=== PATIENT | female | born 2000 | race Caucasian/White ===

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

== ENCOUNTER → 2022-01-24 | Outpatient (CLI) | payer OTHER | END | disposition home or self-care (01) | LOC: LABWHC1 07:55 | PROVIDERS: ATTEND Internal Medicine Endocrinology, Diabetes & Metabolism | DX: E03.8 Other specified hypothyroidism (principal) | CPT/HCPCS: 36415; 84443 ==

== ENCOUNTER → 2022-05-26 | Outpatient (CLI) | payer OTHER | END | disposition home or self-care (01) | LOC: LABWHC1 09:20 | PROVIDERS: ATTEND Internal Medicine Endocrinology, Diabetes & Metabolism | DX: E03.8 Other specified hypothyroidism (principal) | CPT/HCPCS: 36415; 84443 ==

== ENCOUNTER → 2022-12-10 | Outpatient (CLI) | payer OTHER ==
[2022-12-11 03:51] LABS: HIV 2 AB Non-Reactive (Non-Reactive); HIV AB P24 Non-Reactive (Non-Reactive); HIV P24 AG Non-Reactive (Non-Reactive)
== END | disposition home or self-care (01) ==
LOC: LABWHC1 16:02
PROVIDERS: ATTEND Obstetrics & Gynecology
DX: Z34.01 Encounter for supervision of normal first pregnancy, first trimester (principal); Z3A.00 Weeks of gestation of pregnancy not specified; E03.8 Other specified hypothyroidism
CPT/HCPCS: 36415; 84443; 87390

== ENCOUNTER 2022-12-31 16:46 | Emergency (ER) | payer OTHER ==
[2022-12-31 17:38] VITALS: BP 93/60; PULSE 77; RESP 16; TEMP 98
--- NOTE | 2022-12-31 18:59 | ED ---
General Adult HPI - General Source: patient, RN notes reviewed Mode of arrival: ambulatory Limitations: no limitations <Luanne Aguilar - Last Filed: 12/31/22 18:59> <Fredy Baker - Last Filed: 12/31/22 21:47> - General Chief complaint: Abdominal Pain Stated complaint: abd pain-19 weeks preg Time Seen by Provider: 12/31/22 18:58 - History of Present Illness Initial comments: 22 year old female who is presents to the emergency department with a chief complaint of vaginal cramping. Patient reports worsening cramping for months worsening today. Denies vaginal bleeding. (Luanne Aguilar) - Related Data Allergies Allergy/AdvReac Type Severity Reaction Status Date / Time No Known Allergies Allergy Verified 12/31/22 17:38 Review of Systems ROS Other: All systems not noted in ROS Statement are negative. <Luanne Aguilar - Last Filed: 12/31/22 18:59> ROS Other: All systems not noted in ROS Statement are negative. <Fredy Baker - Last Filed: 12/31/22 21:47> ROS Statement: Those systems with pertinent positive or pertinent negative responses have been documented in the HPI. Past Medical History Past Medical History: No Reported History History of Any Multi-Drug Resistant Organisms: None Reported Past Surgical History: No Surgical Hx Reported Past Psychological History: No Psychological Hx Reported Smoking Status: Never smoker Past Alcohol Use History: None Reported Past Drug Use History: None Reported <Luanne Aguilar - Last Filed: 12/31/22 18:59> General Exam Limitations: no limitations <Luanne Aguilar - Last Filed: 12/31/22 18:59> - General Exam Comments Initial Comments: Visual Physical Exam Vital signs reviewed General: Well-appearing, nontoxic, no acute distress. Head: Normocephalic, atraumatic Eyes: PERRLA, EOMI ENT: Airway patent Chest: Nonlabored breathing Skin: No visual rash, normal skin tone Neuro: Alert and oriented 3 Musculoskeletal: No gross abnormalities I performed the quick note portion of this exam, verbal signature Luanne Aguilar PA-C (Luanne Aguilar) Course Vital Signs 12/31/22 17:35 Temperature 98 F Pulse Rate 77 Respiratory 16 Rate Blood Pressure 93/60 O2 Sat by Pulse 98 Oximetry Medical Decision Making - Lab Data Lab Results 12/31/22 Range/Units 20:13 Urine Color Yellow Urine Appearance Cloudy H (Clear) Urine pH 7.0 (5.0-8.0) Ur Specific [place] 1.023 (1.001-1.035) Urine Protein Trace H (Negative) Urine Glucose (UA) Negative (Negative) Urine Ketones Negative (Negative) Urine Blood Negative (Negative) Urine Nitrite Negative (Negative) Urine Bilirubin Negative (Negative) Urine Urobilinogen 4.0 (<2.0) mg/dL Ur Leukocyte Esterase Large H (Negative) Urine RBC <1 (0-5) /hpf Urine WBC 17 H (0-5) /hpf Ur Squamous Epith Cells 6 H (0-4) /hpf Amorphous Sediment Rare H (None) /hpf Urine Bacteria Occasional H (None) /hpf Urine Mucus Rare H (None) /hpf Disposition <Luanne Aguilar - Last Filed: 12/31/22 18:59> Is patient prescribed a controlled substance at d/c from ED?: No Time of Disposition: 21:50 <Fredy Baker - Last Filed: 12/31/22 21:47> Clinical Impression: Abdominal pain, UTI (urinary tract infection) Disposition: HOME SELF-CARE Condition: Good Instructions (If sedation given, give patient instructions): Abdominal Pain in (ED), Urinary Tract Infection in (ED) Prescriptions: Cephalexin [Keflex] 500 mg PO Q6HR #20 cap Referrals: None,Stated [Primary Care Provider] - 1-2 days
--- NOTE | 2022-12-31 20:10 | US ---
EXAMINATION TYPE: US OB >= 14 wk fetus DATE OF EXAM: 12/31/2022 COMPARISON: None CLINICAL cramping INDICATION: Female, 22 years old with history of pelvic cramping; TECHNIQUE: Transabdominal (TA) GESTATIONAL AGE / DATING Physician Established: (19 weeks/2 days) EDC: 05/25/23 Dates by First Scan: No previous this is first scan Dates by Current Scan: (19 weeks/1 days) EDC: 05/26/23 Beta HCG (if available): Not available at this time SURVEY IUP: Single PLACENTA: Posterior PREVIA: No Previa JIM: 13.4 cm Normal CERVICAL LENGTH (transabdominal: norm > 3.0cm): 3.9 cm BIOMETRY PRESENTATION: Breech LIE: Longitudinal BPD: 4.41 cm 19 weeks / 2 days HC: 15.9 cm 18 weeks / 5 days AC: 14.1 cm 19 weeks / 3 days FL: 3.1 cm 19 weeks / 3 days ESTIMATED WEIGHT IN GRAMS: 290.05 grams ESTIMATED WEIGHT IN LBS/OZ: 0 lbs. 10 oz. WEIGHT PERCENTAGE BASED ON ESTABLISHED DATES: 51.8% HC/AC: 1.13 Normal FL/AC: 21.7 Normal HEART RATE: 136 bpm RHYTHM: Normal IMPRESSION: Single live intrauterine gestation ultrasound age 19 weeks 1 day.
[2022-12-31 20:45] LABS: Amorphous Sediment,Urine Rare /hpf; Appearance,Urine Cloudy (Clear); Bacteria,Urine Occasional /hpf; Bilirubin,Urine Negative (Negative); Blood,Urine Negative (Negative); Color,Urine Yellow; Glucose,Urine (UA) Negative (Negative); Ketones,Urine Negative (Negative); Leukocyte Esterase,Urine Large (Negative); Mucus,Urine Rare /hpf; Nitrite,Urine Negative (Negative); Protein,Urine Trace (Negative); RBC,Urine <1 /hpf (0-5); Specific Gravity,Urine 1.023 (1.001-1.035); Squamous Epithelial Cell,Urine 6 /hpf (0-4); WBC,Urine 17 /hpf (0-5)
[2022-12-31] MEDS ORDERED: ACETAMINOPHEN TAB 500 MG TAB PO STA (21:41)
[2022-12-31] MEDS ORDERED: CEPHALEXIN 500 MG CAP PO STA (21:41)
== END 2022-12-31 21:55 | disposition home or self-care (01) ==
LOC: EC 16:46
DX: O23.42 Unspecified infection of urinary tract in pregnancy, second trimester (principal); N39.0 Urinary tract infection, site not specified; Z3A.19 19 weeks gestation of pregnancy
CPT/HCPCS: 76805; 81001; 87086; 99284

== ENCOUNTER → 2023-01-31 | Outpatient (CLI) | payer OTHER | END | disposition home or self-care (01) | LOC: LABWHC1 08:09 | PROVIDERS: ATTEND Internal Medicine Endocrinology, Diabetes & Metabolism | DX: E03.8 Other specified hypothyroidism (principal) | CPT/HCPCS: 36415; 84443 ==

== ENCOUNTER → 2023-03-16 | Outpatient (CLI) | payer OTHER | END | disposition home or self-care (01) | LOC: LABWHC1 10:32 | PROVIDERS: ATTEND Internal Medicine Endocrinology, Diabetes & Metabolism | DX: E03.8 Other specified hypothyroidism (principal) | CPT/HCPCS: 36415; 84443 ==

== ENCOUNTER → 2023-04-20 | Outpatient (CLI) | payer OTHER | END | disposition home or self-care (01) | LOC: LABWHC1 09:45 | PROVIDERS: ATTEND Internal Medicine Endocrinology, Diabetes & Metabolism | DX: E03.8 Other specified hypothyroidism (principal) | CPT/HCPCS: 36415; 84443 ==

== ENCOUNTER 2023-04-23 12:05 | Outpatient (CLI) | payer OTHER ==
[2023-04-23 13:33] LABS: Appearance,Urine Slightly Cloudy (Clear); Bilirubin,Urine 1+ (Negative); Color,Urine Yellow; Glucose,Urine (UA) Negative (Negative); Ketones,Urine Negative (Negative); Protein,Urine Negative (Negative)
[2023-04-23 13:34] LABS: Blood,Urine Negative (Negative); Leukocyte Esterase,Urine Moderate (Negative); Nitrite,Urine Negative (Negative); Urobilinogen,Urine 0.2 mg/dL (<2.0)
[2023-04-23 13:37] LABS: Bacteria,Urine Rare /hpf; Mucus,Urine Rare /hpf; RBC,Urine <1 /hpf (0-5); Squamous Epithelial Cell,Urine 2 /hpf (0-4); WBC,Urine 7 /hpf (0-5)
[2023-04-23 14:02] VITALS: BP 119/63; PULSE 76; RESP 16; TEMP 98.1
--- NOTE | 2023-05-15 17:34 | P.MSEPDOC ---
Presenting Problems - Arrival Data Date of Arrival on Unit: 04/23/23 Time of Arrival on Unit: 12:05 Mode of Transport: Ambulatory - Complaint OB-Reason for Admission/Chief Complaint: Possible Onset of Labor, Pain Comment: Contractions since 0800, non painful Medical History - Information : 1 Para: 0 - Gestational Age Gestational Age by TORI (wks/days): 35 Weeks and 3 Days Review of Systems - Review of Systems Constitutional: No problems Breast: No problems ENT: No problems Cardiovascular: No problems Respiratory: No problems Gastrointestinal: No problems Genitourinary: Dysuria Musculoskeletal: No problems Neurological: No problems Skin: No problems Vital Signs - Temperature Temperature: 98.1 F Temperature Source: Temporal Artery Scan - Pulse Right Sitting Brachial Pulse Rate: 76 Pulse Assessment Method: Automatic Cuff - Respirations Respiratory Rate: 16 Oxygen Delivery Method: Room Air O2 Sat by Pulse Oximetry: 99 - Blood Pressure Right Arm Sitting Blood Pressure: 119/63 Blood Pressure Mean: 81 Blood Pressure Source: Automatic Cuff Medical Screen Scoring - Cervical Exam Dilation (cm): 0 Membranes: Intact - Uterine Contractions Frequency From (mins): 2 Frequency To (mins): 3 Duration From (seconds): 30 Duration To (seconds): 50 Intensity: Mild Resting: Soft to palpation - Assessment - Baby A Baseline FHR: 120 Heart Rate - NICHD Category: Category I (Normal) NST: Reactive Physician Notification - Physician Notified Physician Notified Date: 04/23/23 Physician Notified Time: 12:30 Physician: Zahra Jorge - Notification Comment Comment: 1232: Spk c\Dr. Jorge, advsd of pts arrival to triage for contractions since 0800. , 35 3/6, reactive FHT, contrx q1min. Order rec'd to send UA and perform SVE. 1350: Spk c\Dr. Jorge, reviewed results of UA and SVE. Order rec'd to discharge pt home, script will be sent to [facility], urine to be sent for C&S. Pt to follow up as scheduled. Maternal Triage Index - Stat/Priority 1 Stat Priority 1: No - Urgent/Priority 2 Urgent Priority 2: No - Prompt/Priority 3 Prompt Priority 3: Yes Criteria Met for Priority 3: Contractions 35wks Disposition - Disposition OB Disposition: Discharge to home, Written follow up instructions reviewed Discharge Date: 04/23/23 Discharge Time: 13:55 I agree with the RN Medical Screening Exam: Yes Physician's MSE Comment: I have neither seen nor examined the patient. Case reviewed; plan agreed upon as documented in EMR&OBIX.: Yes Diagnosis: RELATED CONDITIONS, UNSPECIFIED, THIRD TRIMESTER
== END 2023-04-23 13:55 | disposition home or self-care (01) ==
LOC: FBPOP 12:05
PROVIDERS: ATTEND Obstetrics & Gynecology
DX: O47.03 False labor before 37 completed weeks of gestation, third trimester (principal); Z3A.35 35 weeks gestation of pregnancy
CPT/HCPCS: 59025; 81001; 87086; 99213

== ENCOUNTER 2023-05-10 17:20 | Outpatient (CLI) | payer OTHER ==
[2023-05-10 18:55] VITALS: BP 126/67; PULSE 92; RESP 16; TEMP 97.9
[2023-05-10 18:56] LABS: Appearance,Urine Cloudy (Clear); Bacteria,Urine Rare /hpf; Bilirubin,Urine Negative (Negative); Blood,Urine Negative (Negative); Color,Urine Light Yellow; Glucose,Urine (UA) Negative (Negative); Ketones,Urine Negative (Negative); Leukocyte Esterase,Urine Large (Negative); Mucus,Urine Rare /hpf; Nitrite,Urine Negative (Negative); Protein,Urine Negative (Negative); RBC,Urine 1 /hpf (0-5); Specific Gravity,Urine 1.018 (1.001-1.035); Squamous Epithelial Cell,Urine 7 /hpf (0-4); Urobilinogen,Urine <2.0 mg/dL (<2.0); WBC,Urine 18 /hpf (0-5)
--- NOTE | 2023-05-15 17:31 | P.MSEPDOC ---
Presenting Problems - Arrival Data Date of Arrival on Unit: 05/10/23 Time of Arrival on Unit: 17:20 Mode of Transport: Ambulatory - Complaint OB-Reason for Admission/Chief Complaint: Decreased Movement, Dizziness, Other Comment: cough Medical History - Information : 1 Para: 0 Term: 0 : 0 Abortions: Spontaneous or Elective: 0 Number of Living Children: 0 - Gestational Age Gestational Age by TORI (wks/days): 37 Weeks and 6 Days Review of Systems - Review of Systems Constitutional: No problems Breast: No problems ENT: Cough Cardiovascular: No problems Respiratory: No problems Gastrointestinal: No problems Genitourinary: No problems Musculoskeletal: No problems Neurological: Dizziness Skin: No problems Vital Signs - Temperature Temperature: 97.9 F Temperature Source: Oral - Pulse Right Sitting Pulse Rate: 92 Pulse Assessment Method: Automatic Cuff - Respirations Respiratory Rate: 16 Oxygen Delivery Method: Room Air O2 Sat by Pulse Oximetry: 98 - Blood Pressure Right Arm Blood Pressure: 126/67 Blood Pressure Mean: 86 Blood Pressure Source: Automatic Cuff Medical Screen Scoring - Uterine Contractions Frequency From (mins): 1 Frequency To (mins): 3 Duration From (seconds): 20 Duration To (seconds): 40 Intensity: Mild Resting: Soft to palpation - Assessment - Baby A Baseline FHR: 135 Heart Rate - NICHD Category: Category I (Normal) NST: Reactive Physician Notification - Physician Notified Physician Notified Date: 05/10/23 Physician Notified Time: 18:07 Physician: Zahra Jorge New Order Received: Yes (d/c home) Maternal Triage Index - Urgent/Priority 2 Urgent Priority 2: Yes Provider Notified: Zahra Jorge Provider Notified Time: 18:07 Criteria Met for Priority 2: c/o cough and sob, dizziness, and decrased movement, reactive nst, vitals wnl, lung sounds clear - Non-Urgent/Priority 4 Non-Urgent Priority 4: Yes Criteria Met for Priority 4: see above urgent 2 Disposition - Disposition OB Disposition: Discharge to home, Written follow up instructions reviewed Discharge Date: 05/10/23 Discharge Time: 18:15 I agree with the RN Medical Screening Exam: Yes Physician's MSE Comment: I have neither seen nor examined the patient. Case reviewed; plan agreed upon as documented in EMR&OBIX.: Yes Diagnosis: RELATED CONDITIONS, UNSPECIFIED, THIRD TRIMESTER
== END 2023-05-10 18:15 | disposition home or self-care (01) ==
LOC: FBPOP 17:20
PROVIDERS: ATTEND Obstetrics & Gynecology
DX: O36.8131 Decreased fetal movements, third trimester, fetus 1 (principal); O99.513 Diseases of the respiratory system complicating pregnancy, third trimester; R05.9 Cough, unspecified; Z3A.37 37 weeks gestation of pregnancy
CPT/HCPCS: 59025; 81001; 99213

== ENCOUNTER 2023-05-21 11:09 | Inpatient (IN) | payer OTHER ==
[2023-05-21] MEDS ORDERED: CARBOPROST TROMETHAMINE 250 MCG/ML 1 ML AMP IM PRN (11:57)
[2023-05-21] MEDS ORDERED: TRANEXAMIC 1,000 MG/100ML-NACL 1,000 MG in EMPTY BAG 1 BAG IV PRN (11:57)
[2023-05-21] MEDS ORDERED: LIDOCAINE 0.5% (PF) 5 MG/ML (50 ML SDV) SQ PRN (11:57)
[2023-05-21] MEDS ORDERED: TERBUTALINE 1 MG/ML VIAL SQ PRN (11:57)
[2023-05-21] MEDS ORDERED: METHYLERGONOVINE 0.2 MG/ML 1 ML AMP IM PRN (11:57)
[2023-05-21] MEDS ORDERED: OXYTOCIN 10 UNIT/ML 1 ML VIAL IM PRN (11:57)
[2023-05-21] MEDS ORDERED: miSOPROStoL 200 MCG TAB PO PRN (11:57)
[2023-05-21] MEDS ORDERED: OXYTOCIN 30 UNITS/500 ML NS 30 UNIT in SALINE 1 500ML.BAG IV SCH (12:00)
[2023-05-21] MEDS: LACTATED RINGERS 1,000 ML IV SCH (12:20)
[2023-05-21 12:27] LABS: Basophils % (A) 0 %; Eosinophils % (A) 0 %; HCT 31.3 % (34.0-46.0); HGB 10.7 gm/dL (11.4-16.0); Hypochromasia Slight; Lymphocytes # (A) 1.3 k/uL (1.0-4.8); Lymphocytes % (A) 8 %; MCH 28.3 pg (25.0-35.0); MCHC 34.1 g/dL (31.0-37.0); MCV 82.9 fL (80.0-100.0); Mean Platelet Volume 9.7; Monocytes # (A) 0.7 k/uL (0-1.0); Monocytes % (A) 4 %; Neutrophils # (A) 13.5 k/uL (1.3-7.7); Neutrophils % (A) 86 %; Platelet Count 390 k/uL (150-450); Poikilocytosis Slight; RBC 3.77 m/uL (3.80-5.40); RDW 13.9 % (11.5-15.5); WBC 15.8 k/uL (3.8-10.6)
[2023-05-21] MEDS ORDERED: SODIUM CHLORIDE 0.9% 250 ML BAG ONE (13:07)
[2023-05-21] MEDS ORDERED: fentaNYL (PF) 50 MCG/ML 5 ML AMP ONE (13:07)
[2023-05-21] MEDS ORDERED: ROPIVACAINE 5 MG/ML 30 ML VIAL ONE (13:07)
--- NOTE | 2023-05-21 15:49 | P.HPOB ---
History of Present Illness H&P Date: 05/21/23 Chief Complaint: Contractions Ms. Leon is a 23 year old at 39 weeks and 3 days with EDC of 05/25/2023 (by LMP consistent with 13 week US) who presents to labor and delivery in labor. has been complicated by maternal anxiety for which she has been in counseling. The patient also has a history of hypothyroidism for which she is followed by Dr. Cassidy of endocrinology. The fetus was measuring small for gestational age at 37 weeks in the 20%ile. work-up: blood type A positive, antibody negative, rubella immune, VDRL non-reactive, HBsAg negative, HIV negative, gonorrhea negative, chlamydia negative, 1 hour GTT within normal limits, GBS negative. Past Medical History Past Medical History: No Reported History History of Any Multi-Drug Resistant Organisms: None Reported Past Surgical History: No Surgical Hx Reported Additional Past Surgical History / Comment(s): Slaughter teeth Past Anesthesia/Blood Transfusion Reactions: No Reported Reaction Past Psychological History: No Psychological Hx Reported Smoking Status: Never smoker Past Alcohol Use History: None Reported Past Drug Use History: None Reported - Past Family History Mother Family Medical History: No Reported History Medications and Allergies Home Medications Medication Instructions Recorded Confirmed Type Levothyroxine Sodium 125 mcg PO DAILY 04/23/23 05/21/23 History Vit No.179/Iron/Folic 1 each PO DAILY 04/23/23 05/21/23 History [ Tablet] Allergies Allergy/AdvReac Type Severity Reaction Status Date / Time No Known Allergies Allergy Verified 05/21/23 13:52 Exam Vital Signs Temp Pulse Resp BP 05/21/23 11:56 98.5 F 89 19 130/80 05/21/23 11:33 98.5 F 89 19 130/80 Intake and Output 05/21/23 05/21/23 05/21/23 06:59 14:59 22:59 Other: # Voids 2 Weight 61.235 kg Focused physical exam is performed. This is a healthy-appearing in no apparent distress. Breathing is non-labored. Abdomen is gravid and non-tender. Cervical exam is 10 cm, 100% effacement, +1 station. Membranes are status post spontaneous rupture. Extremeties non-tender and non-edematous. heart tones are Category II with pusing and tocometer is graphing contractions every 2-4 minutes. Results Result Diagrams: 05/21/23 12:18 Abnormal Lab Results - Last 24 Hours (Table) 05/21/23 Range/Units 12:18 WBC 15.8 H (3.8-10.6) k/uL RBC 3.77 L (3.80-5.40) m/uL Hgb 10.7 L (11.4-16.0) gm/dL Hct 31.3 L (34.0-46.0) % Neutrophils # 13.5 H (1.3-7.7) k/uL Assessment and Plan Assessment: 23 year old at 39 weeks and 3 days in active labor Plan: Admit, epidural, expectant management. Anticipate vaginal delivery.
[2023-05-21] MEDS ORDERED: diphenhydrAMINE 25 MG CAP PO PRN (15:51)
[2023-05-21] MEDS ORDERED: diphenhydrAMINE 50 MG CAP PO PRN (15:51)
[2023-05-21] MEDS ORDERED: LANOLIN CREAM 5 GM TUBE TOPICAL PRN (15:51)
[2023-05-21] MEDS ORDERED: ZOLPIDEM 5 MG TAB PO PRN (15:51)
[2023-05-21] MEDS ORDERED: diphenhydrAMINE 50 MG/ML 1 ML VIAL IVP PRN ×2 (15:51)
[2023-05-21] MEDS ORDERED: SIMETHICONE 80 MG CHEWABLE PO PRN (15:51)
[2023-05-21] MEDS ORDERED: BENZOCAINE/MENTHOL SPRAY 1 GM/SPRAY AEROSOL TOPICAL PRN (15:51)
[2023-05-21] MEDS ORDERED: HYDROCORTISONE 2.5% RECTAL CREAM 30 GM TUBE RECTAL PRN (15:51)
--- NOTE | 2023-05-21 15:51 | P.PROBDLV ---
Vaginal Delivery Note - . Vaginal Delivery Note: DATE OF SERVICE: 05/21/2023 PROCEDURE: Normal Vaginal Delivery ATTENDING: Dr. Zahra Jorge MD ESTIMATED BLOOD LOSS: 100 mL FINDINGS: VFI, Apgars 9/9. Weight 6 pounds and 10 ounces (3005 grams) PROCEDURE: Ms. Leon is a 23 year old at 39 weeks and 3 days presenting to labor and delivery for active labor. The has been complicated by maternal anxiety and maternal hypothyroidism. For further details, please review the admitting H&P. The patient received epidural anesthesia per her request. The patient was completely dilated at 1406. SROM occured at 1422. The patient pushed effectively with Category II heart tones. A viable female was delivered at 1522. The was placed on the maternal abdomen and bulb suctioned. The was noted to be spontaneously crying. Cord was clamped and cut after a 30-second delay. The infant was handed off to the pediatric team. Placenta was delivered whole with gentle cord traction at 1524. Oxytocin was started to facilitate uterine tone. Uterine fundus was found to be firm and below the umbilicus upon fundal massage. Thorough examination of the cervix, vagina, periurethral area, and perineum revealed a deep right labia majora laceration that was repaired with 3-0 Vicryl in an interrupted fashion. The patient is stable and allowed to begin the bonding process.
[2023-05-21] MEDS: IBUPROFEN 600 MG TAB PO PRN (16:11)
[2023-05-21 16:17] VITALS: RESP 16
[2023-05-21] MEDS: ACETAMINOPHEN TAB 325 MG TAB PO PRN (19:59)
[2023-05-21] MEDS: SENNOSIDES-DOCUSATE SODIUM 1 EACH TAB PO SCH (19:59)
[2023-05-22] MEDS: IBUPROFEN 600 MG TAB PO PRN ×2 (00:12→08:06)
[2023-05-22] MEDS: LACTATED RINGERS 1,000 ML IV SCH ×2 (03:12→05:32)
[2023-05-22] MEDS: ACETAMINOPHEN TAB 325 MG TAB PO PRN (03:40)
[2023-05-22 07:35] LABS: Basophils % (A) 0 %; Eosinophils % (A) 0 %; HCT 26.5 % (34.0-46.0); Hypochromasia Slight; Lymphocytes # (A) 1.3 k/uL (1.0-4.8); Lymphocytes % (A) 10 %; MCH 27.9 pg (25.0-35.0); MCHC 32.9 g/dL (31.0-37.0); MCV 84.9 fL (80.0-100.0); Mean Platelet Volume 9.1; Monocytes # (A) 0.4 k/uL (0-1.0); Monocytes % (A) 3 %; Neutrophils # (A) 11.2 k/uL (1.3-7.7); Neutrophils % (A) 86 %; Platelet Count 251 k/uL (150-450); Poikilocytosis Slight; RBC 3.13 m/uL (3.80-5.40); RDW 14.1 % (11.5-15.5); WBC 13.1 k/uL (3.8-10.6)
[2023-05-22 07:39] LABS: HGB 8.7 gm/dL (11.4-16.0)
[2023-05-22] MEDS: SENNOSIDES-DOCUSATE SODIUM 1 EACH TAB PO SCH (08:06)
--- NOTE | 2023-05-22 08:36 | P.DS ---
Providers Date of admission: 05/21/23 11:41 Expected date of discharge: 05/22/23 Attending physician: Zahra Jorge MD Primary care physician: Stated None Hospital Course: Ms. Leon is a 23 year old now PPD#1 s/p normal spontaneous vaginal delivery without complications. She is doing well this morning and desires discharge home. The patient is doing well this morning and had no acute events overnight. She has no complaints this morning. She reports moderate lochia, passing flatus, voiding without difficulty, ambulating, and eating/drinking without nausea or vomiting. Infant doing well at bedside. She denies chest pain, shortness of breathing, fevers, or chills overnight. She denies pain or swelling in the legs. restrictions are reviewed with the patient including pelvic rest for 6 weeks. The patient is encouraged to call the office if she experiences any heavy bleeding, foul-smelling discharge, breast complaints, or any if she has any other concerns. She will follow up in the office with in 6 weeks for exam. She will take over the counter Motrin and Tylenol for pain control. All questions are answered. Assessment: 23 year old now PPD#1 s/p Patient Condition at Discharge: Good Plan - Discharge Summary New Discharge Prescriptions: No Action Levothyroxine Sodium 125 mcg PO DAILY Vit No.179/Iron/Folic [ Tablet] 1 each PO DAILY Discharge Medication List Levothyroxine Sodium 125 mcg PO DAILY 04/23/23 [History] Vit No.179/Iron/Folic [ Tablet] 1 each PO DAILY 04/23/23 [History] Follow up Appointment(s)/Referral(s): Zahra Jorge MD [STAFF PHYSICIAN] - 6 Weeks Activity/Diet/Wound Care/Special Instructions: Instructions 1. Do not begin any exercise program for 3 weeks. 2. Do not resume sexual relations for 6 weeks or longer if uncomfortable. 3. You may take tub baths or showers at any time. 4. You may use tampons if desired after 6 weeks. 5. Keep any areas repaired with stitches clean and dry. 6. If you are not nursing, wear a good fitting, supportive bra during the day and limit fluid intake for at least 1 week to prevent breast engorgement. 7. Call the office, , within the next week to make appointment for your 6 week checkup if it has not already been made. 8. Report any of the following occurrences to the doctor promptly: a. Heavy, excessive bleeding b. Chills, fever c. Burning or frequency of urination d. Pain or redness and breasts if nursing e. Increasing pain or swelling of vulva (stitches). In addition to the above instructions, the following additional should be followed: 1. No heavy lifting or straining (exercising) until after 6 week checkup. 2. Keep abdominal incision clean and dry: You may wear a dressing if more comfortable. 3. Make office appointment for 2 weeks after delivery date. Discharge Disposition: HOME SELF-CARE
[2023-05-22 08:41] VITALS: BP 118/77; PULSE 85; TEMP 98.1
== END 2023-05-22 16:00 | disposition home or self-care (01) | DRG 807 ==
LOC: FBPOP 11:09 → 4FBP 11:41
PROVIDERS: ADMIT Obstetrics & Gynecology; ATTEND Obstetrics & Gynecology
PROC: 10E0XZZ Delivery of Products of Conception, External Approach (ICD-10-PCS; principal; 2023-05-21)
PROC: 4A1HXCZ Monitoring of Products of Conception, Cardiac Rate, External Approach (ICD-10-PCS; 2023-05-21)
PROC: 0UQMXZZ Repair Vulva, External Approach (ICD-10-PCS; 2023-05-21)
DX: O42.92 Full-term premature rupture of membranes, unspecified as to length of time between rupture and onset of labor (principal); Z37.0 Single live birth; O76 Abnormality in fetal heart rate and rhythm complicating labor and delivery; O71.82 Other specified trauma to perineum and vulva; E03.9 Hypothyroidism, unspecified; O99.344 Other mental disorders complicating childbirth; O99.284 Endocrine, nutritional and metabolic diseases complicating childbirth; F41.9 Anxiety disorder, unspecified; Z3A.39 39 weeks gestation of pregnancy; Z79.890 Hormone replacement therapy
CPT/HCPCS: 59025; 85025; 86850; 86900; 86901; 99213

== ENCOUNTER → 2023-08-16 | Outpatient (CLI) | payer OTHER | END | disposition home or self-care (01) | LOC: LABWHC1 08:02 | PROVIDERS: ATTEND Internal Medicine Endocrinology, Diabetes & Metabolism | DX: E03.8 Other specified hypothyroidism (principal) | CPT/HCPCS: 36415; 84443 ==

== ENCOUNTER → 2024-08-26 | Outpatient (CLI) | payer OTHER ==
--- NOTE | 2024-08-26 08:21 | US ---
EXAMINATION TYPE: US pelvic complete DATE OF EXAM: 08/26/2024 COMPARISON: NONE CLINICAL INDICATION: Female, 24 years old with history of R10.32 LEFT LOWER QUADRANT PAIN; Pt states LLQ pain x 3 weeks TECHNIQUE: Transabdominal (TA). Transabdominal grayscale sonographic images of the pelvis were acquired. Doppler imaging: Not performed. FINDINGS: Date of LMP: 2 weeks ago EXAM MEASUREMENTS: Uterus: 7.5 x 3.6 x 4.3 cm Endometrial Stripe: 0.8 cm Right Ovary: 3.3 x 2.6 x 4.1 cm Left Ovary: 3.8 x 3.0 x 3.9 cm 1. Uterus: Retroverted wnl 2. Endometrium: wnl 3. Right Ovary: Polycystic in appearance 4. Left Ovary: Simple cyst= 2.3 x 2.1 x 2.4 cm 5. Bilateral Adnexa: wnl 6. Posterior cul-de-sac: wnl Unremarkable retroverted uterus without focal lesion. Endometrium is within normal limits. Multiple f ollicles within the periphery of the right ovary. The right ovary demonstrates a volume of 18 mL. Dom inant follicle within the left ovary. The left ovary demonstrating a volume of 23 mL. No free fluid. IMPRESSION: 1. No ultrasound evidence for acute pelvic process. 2. Multiple follicles within the periphery of the right ovary. Additionally there is enlargement of b oth ovaries. This could be seen with polycystic ovarian syndrome. Correlate clinically. [facility], , 08/26/2024 8:19 AM
== END | disposition home or self-care (01) ==
LOC: RADUSWWP 07:39
PROVIDERS: ATTEND Family Medicine
DX: N83.8 Other noninflammatory disorders of ovary, fallopian tube and broad ligament (principal); N83.292 Other ovarian cyst, left side; N83.291 Other ovarian cyst, right side
CPT/HCPCS: 76856